=== PATIENT | female | born 1990 | race Caucasian/White ===

== ENCOUNTER 2016-09-22 04:50 | Emergency (ER) | payer OTHER ==
[2016-09-22] MEDS ORDERED: AZITHROMYCIN 250 MG TABLET (FP) PO ONE (05:38)
--- NOTE | 2016-09-22 05:38 | PDOC ---
History of Present Illness - General Chief Complaint: Nausea/Vomiting Stated Complaint: COUGH,VOMITING Time Seen by Provider: 09/22/16 05:13 History Source: Patient Exam Limitations: No Limitations - History of Present Illness Initial Comments: 09/22/16 05:41 25-year-old female with no medical history presents to the emergency department complaining of a nonproductive cough 4-5 days with nausea only when she has a persistent cough. Patient denies fever, chills, dizziness, lightheadedness, headaches, neck pains, back pains, chest pain, shortness of breath, abdominal pains, urinary symptoms. Patient started taking Robitussin today with minimal relief. Timing/Duration: other (x4d) Severity: mild Associated Symptoms: reports: cough. denies: fever/chills Past History - Past Medical History Allergies/Adverse Reactions: Allergies Allergy/AdvReac Type Severity Reaction Status Date / Time Penicillins Allergy Intermediate Verified 05/15/12 00:58 Home Medications: Ambulatory Orders No Home Medications 0 dose .ROUTE UTDICT 05/15/12 Azithromycin [Zithromax -] 250 mg PO UTDICT #6 tab 09/22/16 - Immunization History Td Vaccination: No Immunization Up to Date: No - Psycho/Social/Smoking Cessation Hx Anxiety: No Suicidal Ideation: No Smoking Status: No Smoking History: Never smoked Years of Tobacco Use: 0 Have you smoked in the past 12 months: No Number of Cigarettes Smoked Daily: 0 Cigars Per Day: 0 Information on smoking cessation initiated: No Hx Alcohol Use: No Drug/Substance Use Hx: No Review of Systems - Review of Systems Able to Perform ROS?: Yes Comments:: 09/22/16 05:36 CONSTITUTIONAL: Absent: fever, chills, diaphoresis, generalized weakness, malaise, loss of appetite HEENT: Absent: rhinorrhea, nasal congestion, throat pain, throat swelling, difficulty swallowing, mouth swelling, ear pain, eye pain, visual Changes CARDIOVASCULAR: Absent: chest pain, loss of consciousness, palpitations, irregular heart rate, peripheral edema RESPIRATORY: Absent: cough, shortness of breath, dyspnea with exertion, orthopnea, wheezing, stridor, hemoptysis GASTROINTESTINAL: Absent: abdominal pain, abdominal distension, nausea, vomiting, diarrhea, constipation, melena, hematochezia GENITOURINARY: Absent: dysuria, frequency, urgency, hesitancy, hematuria, flank pain, genital pain MUSCULOSKELETAL: Absent: myalgia, arthralgia, joint swelling SKIN: Absent: rash, itching, pallor HEMATOLOGIC/IMMUNOLOGIC: Absent: easy bleeding, easy bruising, lymphadenopathy, frequent infections ENDOCRINE: Absent: unexplained weight gain, unexplained weight loss, heat intolerance, cold intolerance NEUROLOGIC: Absent: headache, focal weakness or paresthesias, dizziness, unsteady gait, seizure, mental status changes, bladder or bowel incontinence PSYCHIATRIC: Absent: anxiety, depression, suicidal or homicidal ideation, hallucinations. Is the patient limited Chinese proficient: No *Physical Exam - Vital Signs Last Vital Signs Temp Pulse Resp BP Pulse Ox 98.3 F 75 18 116/57 100 09/22/16 05:28 09/22/16 05:28 09/22/16 05:28 09/22/16 05:28 09/22/16 05:28 - Physical Exam Comments: 09/22/16 05:36 GENERAL: Well developed, well nourished. Awake and alert. No acute distress. HEENT: Normocephalic, atraumatic. PERRLA, EOMI. No conjunctival pallor. Sclera are non- icteric. Moist mucous membranes. Oropharynx is clear. NECK: Supple. Full ROM. No JVD. Carotid pulses 2+ and symmetric, without bruits. No thyromegaly. No lymphadenopathy. CARDIOVASCULAR: Regular rate and rhythm. No murmurs, rubs, or gallops. Distal pulses are 2+ and symmetric. PULMONARY: No evidence of respiratory distress. Lungs clear to auscultation bilaterally. No wheezing, rales or rhonchi. ABDOMINAL: Soft. Non-tender. Non-distended. No rebound or guarding. No organomegaly. Normoactive bowel sounds. MUSCULOSKELETAL Normal range of motion at all joints. No bony deformities or tenderness. No CVA tenderness. EXTREMITIES: No cyanosis. No clubbing. No edema. No calf tenderness. SKIN: Warm and dry. Normal capillary refill. No rashes. No jaundice. NEUROLOGICAL: Alert, awake, appropriate. Cranial nerves 2-12 intact. No deficits to light touch and temperature in face, upper extremities and lower extremities. No motor deficits in the in face, upper extremities and lower extremities. Normoreflexic in the upper and lower extremities. Normal speech. Toes are down- going bilaterally. Gait is normal without ataxia. PSYCHIATRIC: Cooperative. Good eye contact. Appropriate mood and affect. *DC/Admit/Observation/Transfer Diagnosis at time of Disposition: Acute bronchitis Qualifiers: Bronchitis organism: unspecified organism Qualified Code(s): J20.9 - Acute bronchitis, unspecified - Discharge Dispostion Disposition: HOME Condition at time of disposition: Stable Admit: No - Prescriptions Prescriptions: Azithromycin [Zithromax -] 250 mg PO UTDICT #6 tab - Patient Instructions Printed Discharge Instructions: DI for Acute Bronchitis Additional Instructions: Rest Increase fluids Tylenol or motrin as needed FOLLOW UP WITH YOUR PHYSICIAN OR THE DOCTOR LISTED ON YOUR DISCHARGE Return to the ER for severe/persistent/worsening symptoms - Post Discharge Activity Work/School Note: Back to Work Progress Note - Progress Note Progress Note: Pt adamantly refuses cxr
[2016-09-22] MEDS ORDERED: AZITHROMYCIN 250 MG TABLET (FP) ONE (05:42)
[2016-09-22 06:47] VITALS: BP 116/57; PULSE 75; TEMP 98.3; BMI 25.0
== END 2016-09-22 06:00 | disposition home or self-care (01) ==
LOC: JER 04:50
DX: J20.9 Acute bronchitis, unspecified (principal)
CPT/HCPCS: 99281-25